=== PATIENT | male | born 1980 | race Caucasian/White ===

== ENCOUNTER 2023-11-04 14:52 | Outpatient (CLI) | payer OTHER, SELFPAY ==
--- NOTE | ~2023-11-04 | CT_ITS ---
EXAMINATION: CT soft tissue neck w con DATE: 11/04/2023 15:27 INDICATION: Other diseases of salivary glands. Mass of left submandibular gland. TECHNIQUE: Computed tomography (CT) of the neck was performed with 75 mL Omnipaque-350 intravenous co ntrast. Automated exposure control and iterative reconstruction technique were employed. The dose-bozena gth product was 420.10 mGy-cm. COMPARISON: None FINDINGS: The parotid glands and submandibular glands are normal. There is no sialolith. There is mil d bilateral submandibular lymphadenopathy. For example, a left submandibular lymph node measures 2.5 x 1.2 cm. There is mild mucosal thickening in the paranasal sinuses. The mastoid air cells are normal . There is moderate cervical spondylosis. IMPRESSION: 1. Normal major salivary glands. 2. Mild bilateral submandibular lymphadenopathy, likely reactive. Reviewed, dictated and finalized at location A.
[2023-11-04 15:16] LABS: Estimated Glomerular Filt Rate > 60
== END 2023-11-04 14:53 ==
PROVIDERS: PCP Otolaryngology; Visit Provider Otolaryngology
DX: K11.8 Other diseases of salivary glands (principal); K11.23 Chronic sialoadenitis
CPT/HCPCS: 70491; Q9967